=== PATIENT | female | born 1985 | race Caucasian/White ===

== ENCOUNTER → 2020-12-31 18:12 | Outpatient (CLI) | payer OTHER, SELFPAY ==
[2020-12-31 18:40] LABS: COVID19 -Nasal RAPID Negative (Negative)
== END ==
PROVIDERS: Visit Provider Physician Assistant
DX: R05 Cough (principal); R06.02 Shortness of breath; R06.2 Wheezing; R50.9 Fever, unspecified
CPT/HCPCS: 87635

== ENCOUNTER → 2020-12-31 18:25 | Outpatient (CLI) | payer OTHER, SELFPAY ==
--- NOTE | 2020-12-31 18:29 | DI.RAD.S_ITS ---
PROCEDURE: XR CHEST 2V INDICATIONS: cough TECHNIQUE: 2 views of the chest were acquired. COMPARISON: None. FINDINGS: Surgical changes and devices: None. Lungs and pleura: Lungs are clear. No pleural effusions or pneumothorax. Mediastinum: Mediastinal contours are normal. Heart size is normal. Bones and chest wall: No suspicious bony abnormalities. Soft tissues appear unremarkable. IMPRESSION: No acute process. Dictated by: Fitz Smith M.D. on 12/31/2020 at 18:56 Approved by: Fitz Smith M.D. on 12/31/2020 at 18:56
== END ==
PROVIDERS: Referring Provider Physician Assistant; Visit Provider Physician Assistant
DX: R05 Cough (principal); R50.9 Fever, unspecified; R06.02 Shortness of breath; R06.2 Wheezing
CPT/HCPCS: 71046; 87635